=== PATIENT | male | born 1945 | race Caucasian/White ===

== ENCOUNTER 2017-06-06 10:13 | Outpatient (CLI) | payer MEDICARE, BC ==
[~2017-06-06 10:13] MED LIST: Iopamidol 370 76% 100 ML VIAL ONE
== END 2017-06-06 10:14 | disposition home or self-care (01) ==
LOC: BICCT 10:13
PROVIDERS: ATTEND Internal Medicine Cardiovascular Disease
DX: I73.9 Peripheral vascular disease, unspecified (principal); I77.810 Thoracic aortic ectasia; N20.0 Calculus of kidney; K57.30 Diverticulosis of large intestine without perforation or abscess without bleeding
CPT/HCPCS: 75635

== ENCOUNTER 2017-07-27 07:36 | Outpatient (CLI) | payer MEDICARE, BC ==
--- NOTE | 2017-07-27 11:09 | CT ---
CT ANGIOGRAM THORAX WITH IV CONTRAST AND 3D RECONSTRUCTIONS: DATE: 07/27/17. HISTORY: Thoracic aortic aneurysm without rupture. Followup evaluation. COMPARISON: 06/30/16 and study on 04/16/15. FINDINGS: Again noted is aneurysmal dilatation of the ascending thoracic aorta, which measures approximately 5 cm in diameter, and this is stable in size compared to the study on 04/16/15. Descending thoracic aor ta is normal in caliber. There is no evidence of an aortic dissection. There is suboptimal opacification of the pulmonary arteries on this exam. The heart is mildly enlarged. There is a stable heterogeneous nodule seen within the right lobe of the thyroid gland. This nodule measures approximately 1.3 cm. The lungs are clear, aside from minimal atelectasis at the right lung base. There is a fluid density 1.2 cm lesion within the anterior aspect superior pole right kidney suggesti ve of a cyst with questionable additional hypodense lesion mid portion right kidney incompletely imag ed, but this could be related to a prominent medullary pyramid. The remainder of the upper abdomen has a normal CT appearance. There has been no interval change compared to the prior exam. IMPRESSION: 1. Stable aneurysmal dilatation of the ascending thoracic aorta measuring 5 cm in diameter. This ex tends to the most proximal level of the aortic arch, but the aortic arch as well as descending thorac ic aorta are normal in caliber. 2. Heterogeneous nodule right lobe of the thyroid gland. Nonemergent thyroid ultrasound may be help ful for further evaluation. 3. Right renal cyst. POS: [facility]
[2017-07-27] MEDS ORDERED: Iopamidol 370 76% 100 ML VIAL ONE (15:11)
== END 2017-07-27 07:37 | disposition home or self-care (01) ==
LOC: CT 07:36
PROVIDERS: ATTEND Internal Medicine Cardiovascular Disease
DX: I71.2 Thoracic aortic aneurysm, without rupture (principal); E04.1 Nontoxic single thyroid nodule; N28.1 Cyst of kidney, acquired
CPT/HCPCS: 71275

== ENCOUNTER 2017-09-20 13:25 | Emergency (ER) | payer MEDICARE, BC ==
[2017-09-20 13:58] LABS: #Basophils 0.1 thou/uL (0.0-0.2); #Eosinphils 0.2 thou/uL (0.0-0.7); #Lymphocytes 0.8 thou/uL (1.20-3.40); #Monocytes 0.2 thou/uL (0.11-0.59); #Neutrophils 4.8 thou/uL (1.40-6.50); %Basophils 1.1 % (0.0-1.0); %Eosinophils 2.7 % (0.0-10.0); %Lymphocytes 12.6 % (21.0-51.0); %Monocytes 3.3 % (0.0-10.0); %Neutrophils 80.3 % (42.0-75.0); Hemoglobin 17.3 g/dL (14.0-18.0); Mean Corpuscular HGB CONC 33.8 g/dL (32.0-36.0); Mean Corpuscular Hemoglobin 32.3 pg (27.0-31.0); Mean Corpuscular Volume 95.4 fL (78.0-98.0); Mean Platelet Volume 9.1 fL (7.4-10.4); Platelet Count 169 thou/uL (130-400); RBC Distribution Width 12.4 % (11.5-14.5); Red Blood Cell (RBC) Count 5.37 mill/uL (4.70-6.10); White Blood Cell (WBC) Count 5.9 thou/uL (4.8-10.8)
--- NOTE | 2017-09-20 14:11 | RAD ---
PORTABLE UPRIGHT FRONTAL CHEST RADIOGRAPH: Date: 09-20-17 Comparison: None. History: Syncope. Pain. FINDINGS: There is no pneumothorax, pleural fluid, focal consolidation, or alveolar edema. Heart and mediastina l contours are grossly unremarkable. IMPRESSION: No acute findings. POS: [facility]
[2017-09-20 14:28] LABS: CKMB 1.7 ng/mL (0-6.6); Troponin I Less than 0.010 ng/mL (< 0.028)
[2017-09-20 14:30] LABS: ALT (SGPT) 40 U/L (8-55); AST (SGOT) 29 U/L (5-34); Albumin 4.2 g/dL (3.4-4.8); Alkaline Phosphatase 97 U/L (40-150); Anion Gap 14 mmol/L (10-20); BUN (Urea Nitrogen) 18 mg/dL (8.4-25.7); Bilirubin, Total 0.8 mg/dL (0.2-1.2); Calc. Creatinine Clearance 0 mL/min (70-130); Calcium 9.8 mg/dL (7.8-10.44); Carbon Dioxide 17 mmol/L (23-31); Chloride 113 mmol/L (98-107); Estimated GFR-MDRD 56; Globulin 3.6 g/dL (2.4-3.5); Glucose 180 mg/dL (83-110); Potassium 4.1 mmol/L (3.5-5.1); Protein, Total 7.8 g/dL (5.8-8.1); Sodium 140 mmol/L (136-145)
[2017-09-20 15:55] LABS: Bilirubin Negative (Negative); Blood, Urine Negative (Negative); Clarity CLEAR (Clear); Glucose, Urine (Dipstick) Negative (Negative); Leukocyte Moderate (Negative); Nitrite Negative (Negative); Protein, Urine (Dipstick) Trace mg/dL (Neg-Trace); Specific Gravity, Urine 1.019 (1.002-1.036); pH, Urine 7.5 (5.0-9.0)
[2017-09-20 15:56] LABS: Bacteria/HPF None Seen HPF (None Seen); Hyaline Casts/LPF 4-6 HYALINE CAST LPF (0-3 Hyaline); Pathc Cast-AUWi Flag 1.01 (0-2.49); RBC/HPF 0-3 HPF (0-3); Squamous Epithelial 0-3 HPF (0-3)
[2017-09-20 16:04] LABS: Renal Epithelial None Seen HPF (0-3); Transitional Epithelial NONE SEEN HPF (0-3)
== END 2017-09-20 17:24 | disposition home or self-care (01) ==
LOC: ERS 13:25
DX: E86.0 Dehydration (principal); B34.9 Viral infection, unspecified; Z79.899 Other long term (current) drug therapy
CPT/HCPCS: 36415; 71045; 80053; 81003; 81015; 82553; 84484; 85025; 93005; 96360; 96361

== ENCOUNTER 2017-09-24 07:37 | Outpatient (CLI) | payer MEDICARE, BC ==
--- NOTE | 2017-09-24 10:00 | MRI ---
BRAIN AND IAC MRI WITH AND WITHOUT CONTRAST: Date: 09/24/17 HISTORY: Asymmetric left hearing loss. COMPARISON: None. TECHNIQUE: Brain MRI and internal auditory canal MRI performed with and without intravenous Gadolinium administr ation. Multisequential, multiplanar imaging is performed. FINDINGS: Calvarium has a normal T1 marrow signal intensity. Midline brain parenchymal structures are unremarka ble. No parenchymal hemorrhage or extra-axial hematoma. No parenchymal mass, mass effect, or midline shift . Age-appropriate atrophy. Cortical dennis-white matter differentiation preserved. Ventricles and sulci are patent and symmetric. Central arterial flow-voids are maintained. Absent restricted diffusion. Minimal T2 and FLAIR white matter hyperintensities due to chronic small vessel ischemic change. Adequate aeration of the sinuses and mastoid air cells. There is evidence of hyperostosis frontalis interna. No pathologic enhancement of the brain parenchyma. INTERNAL AUDITORY CANAL MRI: There is symmetric signal intensity of the 7th/8th, as well as 5th cranial nerve complexes. There is no abnormal enhancement. No abnormal enhancement in either inner ear structure. IMPRESSION: 1. Unremarkable MRI of internal auditory canals. 2. Absent restricted diffusion. No acute infarct. 3. Age-appropriate brain volume. POS: [facility]
[2017-09-24] MEDS ORDERED: Gadobenate Dimeglumine 529 MG/1 ML (20ML VIAL) ONE (12:59)
== END 2017-09-24 07:38 | disposition home or self-care (01) ==
LOC: MRI 07:37
PROVIDERS: ATTEND Otolaryngology Plastic Surgery within the Head & Neck
DX: H91.8X9 Other specified hearing loss, unspecified ear (principal)
CPT/HCPCS: 70553; A9579

== ENCOUNTER 2018-01-30 12:50 | Outpatient (CLI) | payer MEDICARE, BC ==
--- NOTE | 2018-01-30 15:24 | ULT ---
THYROID ULTRASOUND: Comparison: CTA chest, 07-27-17 History: Abnormal thyroid nodule seen on previous CTA chest. Technique: Multiplanar grayscale and color doppler images were obtained in a thyroid ultrasound. FINDINGS: A small cyst is seen in the left lobe of the thyroid. There is an isoechoic well circumscribed nodule in the lower lobe of the right thyroid lobe. This contains a central shadowing benign appearing calc ification. No suspicious calcifications are present. This nodule measures 1.7 cm in greatest dimensio n. Thyroid lobes measure 4.5 and 4.3 cm in length on the right and left respectively. IMPRESSION: The right thyroid nodule is a TIRADS category 3 lesion. Follow up is recommended per recent recommend ations at 1 year, 3 years, and 5 years as this is greater than 1.5 cm in size. POS: [facility]
== END 2018-01-30 12:51 | disposition home or self-care (01) ==
LOC: BICULT 12:50
PROVIDERS: ATTEND Internal Medicine Cardiovascular Disease
DX: E07.9 Disorder of thyroid, unspecified (principal); E04.1 Nontoxic single thyroid nodule
CPT/HCPCS: 76536

== ENCOUNTER 2018-06-24 08:09 | Outpatient (CLI) | payer MEDICARE, BC ==
--- NOTE | 2018-06-24 10:55 | CT ---
CT ABDOMEN AND PELVIS WITH IV CONTRAST: DATE: 06/24/2018. PROVIDED CLINICAL HISTORY: Abdominal pain. FINDINGS: Comparison is made with the CT angiogram of 06/06/2017 of the abdomen and pelvis and bilateral lower ex tremities. Known ascending thoracic aortic aneurysm is partially visualized. The visualized lung bases are free of significnat opacity. There is interval development of dilatation of the pancreatic duct involvin g the body and tail. There is a subtle focus of somewhat circumscribed diminished attenuation seen w ithin the pancreatic body medial to the pancreatic ductal dilatation. This measures approximate 1.9 cm. The remainder of the pancreatic duct is not dilated, nor is the intrahepatic or extrahepatic slim iary system. This area of somewhat mass-like low density within the pancreatic body is immediately c ranial to the superior mesenteric vein. There is an approximately 9 mm focus of low density present within the anterior aspects of the remedial teacher ior segment of the right hepatic lobe inferiorly seen to best advantage on the axial images, image #2 2. The liver, spleen, and adrenal glands appear otherwise unremarkable. There is a complex cystic lesion involving the posterior aspect of the inferior pole of the right kid venita measuring about 5.8 x 5.2 cm in greatest transverse dimension and about 4.7 cm in greatest cranio caudal dimension. This demonstrates multiple thin internal septations as well as occasional mural ca lcium. There is no definite evidence for an enhancing component. Simple-appearing cysts are seen in volving each kidney as well. Nonobstructing renal calculi are seen bilaterally, largest on the left measuring about 2-3 mm and aggregation of calculi at the inferior pole of the right kidney measuring about 1 cm in total. There is no bowel dilatation, inflammatory fat stranding, free fluid, or lymph node enlargement appar ent. Sigmoid colonic diverticular changes are seen without evidence for diverticulitis. Prostate gl and is mildly enlarged. The osseous structures demonstrate no concerning osteoblastic or osteolytic lesions. Stable bone islands are seen within the pelvis. Postoperative changes are seen involving t he lower lumbar spine. IMPRESSION: 1. Interval development of pancreatic ductal dilatation involving the distal body and tail of the pa ncreas with a subtle low-density mass within the pancreatic body suspected. Findings are suspicious for pancreatic adenocarcinoma with ductal obstruction. Intraductal papillary mucinous neoplasm could also be considered. 2. Nonspecific subcentimeter hypodense focus involving the right hepatic lobe. A metastatic lesion cannot be excluded. 3. Bosniak category IIF right renal cystic lesion. 4. Other chronic findings as above. CODE T POS: [facility]
[2018-06-24] MEDS ORDERED: Iopamidol 370 76% 100 ML VIAL ONE (17:11)
== END 2018-06-24 08:10 | disposition home or self-care (01) ==
LOC: BICCT 08:09
PROVIDERS: ATTEND Internal Medicine Gastroenterology
DX: R10.33 Periumbilical pain (principal); R13.19 Other dysphagia; N28.9 Disorder of kidney and ureter, unspecified; K86.89 Other specified diseases of pancreas; N40.0 Benign prostatic hyperplasia without lower urinary tract symptoms; I71.2 Thoracic aortic aneurysm, without rupture; N28.1 Cyst of kidney, acquired; N20.0 Calculus of kidney; Z98.890 Other specified postprocedural states; Z86.010 Personal history of colon polyps
CPT/HCPCS: 74177; 82565; Q9967

== ENCOUNTER 2018-08-14 09:39 | Outpatient (CLI) | payer MEDICARE, BC ==
--- NOTE | 2018-08-14 11:23 | CT ---
EXAM: CTA of the chest HISTORY: Aortic thoracic aneurysm COMPARISON: 07/27/2017 TECHNIQUE: Multiple contiguous axial images were obtained a CTA of the chest with contrast. Sagittal and coronal 3-D MIP reformats were performed. FINDINGS: HEART: Normal in size without focal cardiac abnormality. PULMONARY ARTERIES: Normal in caliber without filling defects to suggest pulmonary emboli. THORACIC AORTA: There is enlargement of the ascending aorta measuring 5.2 cm in greatest dimension. T he descending aorta is normal in caliber. MEDIASTINUM: No hilar or mediastinal lymphadenopathy. LUNGS: No focal infiltrates or masses. PLEURAL SPACE: No pleural effusion or pneumothorax. CHEST WALL SOFT TISSUES: Unremarkable VISUALIZED OSSEOUS STRUCTURES: Degenerative changes. VISUALIZED SUBDIAPHRAGMATIC STRUCTURES: There is dilatation of the pancreatic duct with a possible hy podense mass measuring 1.6 cm in size in the pancreatic head. IMPRESSION: 1. Ascending thoracic aneurysm. This appears to have slightly enlarged compared to the prior examinat ion. 2. Possible pancreatic head mass. A CT of the abdomen per pancreatic mass protocol is recommended.
== END 2018-08-14 09:40 | disposition home or self-care (01) ==
LOC: CT 09:39
PROVIDERS: ATTEND Internal Medicine Cardiovascular Disease
DX: I71.2 Thoracic aortic aneurysm, without rupture (principal)
CPT/HCPCS: 71250; 71275; 82565

== ENCOUNTER 2019-02-18 09:21 | Outpatient (CLI) | payer MEDICARE, BC ==
--- NOTE | 2019-02-18 09:43 | RAD ---
XR Hip Lt 2-3 View History: Hip pain. M 25.552 Comparison: None. Findings: Small acetabular osteophyte formation. Mild enthesopathic changes of the left iliac crest. Mild enthesopathic changes of the greater trochanter. No acute fracture or malalignment. Moderate degenerative changes of the pubic symphysis and SI joints. Impression: Degenerative findings. No acute osseous abnormality.
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
== END 2019-02-18 09:22 | disposition home or self-care (01) ==
LOC: BICRAD 09:21
PROVIDERS: ATTEND Family Medicine
DX: M25.552 Pain in left hip (principal); M25.562 Pain in left knee; M79.662 Pain in left lower leg; M16.12 Unilateral primary osteoarthritis, left hip

== ENCOUNTER 2019-09-29 15:38 | Inpatient (IN) | payer MEDICARE, BC ==
[~2019-09-29 15:38] MED LIST changes: -Iopamidol 370 76% 100 ML VIAL ONE; +Iopamidol-370 76% 500 ML 1 ML ONE
--- NOTE | 2019-09-29 16:31 | RAD ---
EXAM: Single view of the chest HISTORY: Chest pain COMPARISON: 09/20/2017 FINDINGS: Single view of the chest shows a normal sized cardiomediastinal silhouette. A Mediport is seen with its tip in the superior vena cava. There is no evidence of consolidation, mass, or pleural effusion. The bones are unremarkable. IMPRESSION: No evidence of acute cardiopulmonary disease
[2019-09-29 16:50] LABS: Mean Corpuscular HGB CONC 32.7 g/dL (32.0-36.0); Mean Corpuscular Hemoglobin 29.7 pg (27.0-31.0); Mean Corpuscular Volume 90.9 fL (78.0-98.0); Mean Platelet Volume 11.3 fL (7.4-10.4); Platelet Count 94 thou/uL (130-400); RBC Distribution Width 17.1 % (11.5-14.5); Red Blood Cell (RBC) Count 2.69 mill/uL (4.70-6.10); White Blood Cell (WBC) Count 1.7 thou/uL (4.8-10.8)
[2019-09-29 17:03] LABS: ALT (SGPT) 48 U/L (8-55); AST (SGOT) 45 U/L (5-34); Albumin 3.1 g/dL (3.4-4.8); Alkaline Phosphatase 481 U/L (40-110); Anion Gap 12 mmol/L (10-20); BUN (Urea Nitrogen) 17 mg/dL (8.4-25.7); Bilirubin, Total 0.6 mg/dL (0.2-1.2); Calc. Creatinine Clearance 0 mL/min (70-130); Calcium 8.2 mg/dL (7.8-10.44); Carbon Dioxide 21 mmol/L (23-31); Chloride 111 mmol/L (98-107); Estimated GFR-MDRD 67; Globulin 2.6 g/dL (2.4-3.5); Glucose 140 mg/dL (83-110); Potassium 3.7 mmol/L (3.5-5.1); Protein, Total 5.7 g/dL (5.8-8.1); Sodium 140 mmol/L (136-145)
[2019-09-29 17:13] LABS: Anisocytosis SLIGHT = 6-15 cells (100X) (0-5/hpf); Band 14 % (5-11); Eosinophils 3 % (0-10); Lymphocytes 8 % (21-51); MDiff Complete? YES; Monocytes 16 % (0-10); Neutrophil 56 % (42-75); Ovalocytes SLIGHT = 2-5 cells (100X) (0-1/hpf); Platelet Morphology Comment Appears Decreased; Polychromasia SLIGHT = 2-3 cells (100X) (0-2/hpf); Reactive Lymphocytes 2 % (0-10); Reflex for Review?? YES; Schistocytes SLIGHT = 2-5 cells (100X) (0-1/hpf); Spherocytes SLIGHT = 1-5 cells (100X) (None Seen); Target Cells SLIGHT = 2-5 cells (100X) (0-1/hpf)
[2019-09-29 17:25] LABS: CKMB 1.2 ng/mL (0-6.6)
--- NOTE | 2019-09-29 18:17 | CT ---
CT ANGIOGRAM OF THE CHEST: History: Pain Comparison: None Technique: CT angiogram of the chest was performed in the axial plane. 3D reformatted images are subm itted for interpretation. FINDINGS: Mediastinum: No mass, lymphadenopathy, or hematoma. Stable dilatation of the ascending thoracic aorta, measuring 4.8 x 4.8 cm. No periaortic fat strandin g. There is evidence of a stent in the common bile duct. There is associated pneumobilia. Mild cirrhotic changes of the liver. There is evidence of complex ascites. Trachea and central bronchi are patent. Patchy ground glass opacities. No suspicious masses or consol idation. There is no pneumothorax or pleural fluid. No lytic or blastic lesions within the osseous structures. Adequate contrast opacification of the pulmonary arterial system to the level of the segmental arteri es. There are no filling defects to suggest thromboembolism. The central pulmonary arteries are promi nent suggesting a component of pulmonary hypertension. IMPRESSION: 1. No evidence of pulmonary arterial embolism to the level of the segmental arteries. 2. Complex ascites. 3. Cirrhotic change of the liver. 4. Common bile duct stent with pneumobilia. POS: [facility]
[2019-09-29 20:45] LABS: Hemoglobin 7.9 g/dL (14.0-18.0)
[2019-09-29 21:05] LABS: Iron Binding Capacity, Total 280 mcg/dL (261-462); Lipase Less than 4 U/L (8-78)
[2019-09-29 21:06] LABS: Iron 23 ug/dL (65-175)
[2019-09-29 21:26] LABS: Ferritin 106.59 ng/mL (22-322); Thyroid Stimulating Hormone 1.63 uIU/mL (0.35-4.94)
[2019-09-29 21:38] LABS: CKMB 8.7 ng/mL (0-6.6)
--- NOTE | 2019-09-29 23:27 | HP ---
TIME OF ASSESSMENT: 1800 hours. CHIEF COMPLAINT: "Chest pain that went down my arm norms." PRIMARY CARE PHYSICIAN: Hansel Messer MD HISTORY OF PRESENT ILLNESS: Mr. Brandon is a very pleasant 74-year-old gentleman, who presents to the emergency department after having an episode of severe lower sternal/epigastric pain. The patient states it came on suddenly while he was resting and was severe, described as a dull aching. He rated it a 10/10 in severity and states it lasted approximately 45 minutes. The patient reports having similar pains in the last 2 months intermittently and without any association in activity level. He states that usually the discomfort is not as severe and it tends to ease on its own after 20-30 minutes. He denies experiencing any shortness of breath with exertion or at rest. Denies having any cough or hemoptysis. Denies any nausea or vomiting. No associated diaphoresis. His received instructions to give him aspirin while he was at home when they called for help. The patient denies ever undergoing any cardiac stress test or catheterization. Has not required any stents in the past. Reports having history of a thoracic aortic aneurysm, for which he sees Dr. Olivares regularly. The patient is known to have pancreatic cancer, for which he is currently receiving chemotherapy. He has been receiving chemo for the last year and states for the last two treatment sessions, he has required blood transfusion due to severe anemia. He reports feeling fatigued and generally weak and states receiving blood transfusions has not improved how he feels. He reports being evaluated for a Whipple procedure in July, but due to concerns of hepatic vasculature involvement, the surgery was put off and he was recommended additional chemo to be followed by radiation therapy. He is currently receiving treatment every other Sunday at the [facility] in [facility]. He is due to receive treatment this Sunday. At present, the patient states he is feeling well and is without any complaints. Chest pain has fully resolved. REVIEW OF SYSTEMS: The patient denies having any issues with his appetite. Reports having issues with fluctuating bowel movements, sometimes he experiences diarrhea and other times constipation, but this has been essentially stable since he has been on chemotherapy. Denies having any urinary complaints such as dysuria, hematuria, urgency, or frequency. Denies having any fevers, chills, or sweats. No complaints of orthopnea. No lower leg swelling or edema. No calf tenderness. All other review of systems apart from those mentioned above in HPI is negative. ED COURSE: In the emergency department, the patient underwent an EKG, which showed normal sinus rhythm with a heart rate of 73. No ST changes or T-wave abnormalities present. He had a chest x-ray done, which showed no evidence of acute cardiopulmonary disease. A CT angiogram was done as well showing no evidence of PE. Complex ascites present with cirrhotic changes to the liver. The patient states he has no history of alcohol abuse in the past and states the liver changes have developed since starting chemotherapy. Of note, the patient is noted to have a stable dilation of the ascending thoracic aorta currently measuring 4.8 x 4.8 cm. He is noted to have a common bile duct stent with pneumobilia. He has had laboratory studies done showing a white count of 1.7, hemoglobin of 8, hematocrit 24.5, platelets 94, neutrophils 56, bands 14. Sodium 140, potassium 3.7, BUN 17, creatinine 1.08, GFR 67, glucose 140, calcium 9.2, AST 45, ALT 48, alkaline phosphatase 41, CK-MB 1.2, troponin 0.068, albumin 3.1, total protein 5.7. PAST MEDICAL HISTORY: 1. Pancreatic cancer. 2. Thoracic ascending aortic aneurysm. PAST SURGICAL HISTORY: 1. Back surgery. 2. MediPort placement. 3. Arm surgery. SOCIAL HISTORY: The patient denies any history of tobacco use, alcohol consumption, or illicit drug use. He lives at home with his and is fully independent. FAMILY HISTORY: Noncontributory. ALLERGIES: NO KNOWN DRUG ALLERGIES. CURRENT MEDICATIONS: 1. Alprazolam 0.25 mg p.o. t.i.d. 2. Tamsulosin 0.4 mg p.o. daily. 3. Montelukast 10 mg p.o. daily. 4. Zolmitriptan 5 mg p.o. p.r.n. 5. Esomeprazole magnesium 40 mg p.o. twice daily. 6. Topiramate 25 mg p.o. t.i.d. 7. Eszopiclone 3 mg p.o. p.r.n. 8. Hyoscyamine. 9. Zinc 50 mg p.o. daily. 10. Selenium 200 mcg p.o. daily. 11. Creon. 12. Oxycodone 5 mg p.o. every 6 hours as needed for pain. 13. Compazine 5 mg p.o. every 6 hours p.r.n. 14. Lomotil p.r.n. 15. Ondansetron 8 mg p.o. p.r.n. PHYSICAL EXAMINATION: GENERAL: The patient appears thin, pale, frail, but well developed, and in no acute distress. He is resting comfortably in a stretcher. VITAL SIGNS: Temperature 99, pulse 72, blood pressure 100/69, respirations 16, and O2 saturation 98% on room air. HEENT: Normocephalic and atraumatic. Pupils are equal, round, and reactive to light. Sclerae are slightly icteric. Oropharynx is clear. NECK: Supple. LUNGS: Clear bilaterally without any wheezes, rales, or rhonchi. CARDIAC: Regular rate and rhythm without audible murmurs, rubs, or gallops. ABDOMEN: Soft. Some slight bloating. No rigidity. Mild epigastric discomfort on palpation. No guarding. No renal angle tenderness. EXTREMITIES: No lower leg swelling or edema. No calf tenderness or swelling. NEUROLOGIC: Alert and oriented x3. No neuro deficits on exam. Speech normal. SKIN: Warm and dry, pale in color. IMPRESSION AND PLAN: Mr. Brandon is a very pleasant 74-year-old gentleman, who is known to have pancreatic cancer, currently undergoing chemotherapy every other Sunday at [facility] in [place], who is being admitted for management of the following. 1. Acute coronary syndrome rule out. The patient with intermittent chest pain for the last two months, which was significantly worse today and lasting longer. There is concern for unstable angina. He could be experiencing demand ischemia due to severe anemia associated with chemotherapy. No chest pain at present. EKG, unremarkable. An initial troponin indeterminate at 0.368. We will continue to trend troponin. The patient had aspirin at home per EMS instructions. We will continue daily aspirin and start him on a statin. He is known to Dr. Olivares, who sees for surveillance of his thoracic aortic aneurysm. Consultation placed to Dr. Olivares. We will keep the patient n.p.o. after midnight in the event that he undergoes a stress test in the morning. Echocardiogram ordered and CT angiogram negative for PE. We will check TSH and lipid panel with morning labs. We will add on magnesium to labs as well. 2. Severe anemia. Possibly cause of chest pain secondary to demand ischemia. We will obtain iron studies. We will give gentle hydration. However, we will likely dilute the hemoglobin further and they would plan to give blood transfusion. Type and screen ordered. We will check stool for occult blood. 3. Pancreatic cancer. The patient is currently on chemotherapy. May need to be rescheduled as he is due for treatment this upcoming Sunday. Day Team to decide if Oncology input needed during this admission. LFTs notable for mild elevation in the AST, otherwise LFTs normal. The patient does have liver cirrhosis with complex ascites noted on the CTA of the chest. We will repeat LFTs with morning labs. 4. Thoracic aortic aneurysm. Proceeded to angiogram, this is currently stable. 5. Gastrointestinal prophylaxis. The patient will be started on omeprazole 40 mg b.i.d. 6. Deep venous thrombosis prophylaxis. Mechanical SCDs. 7. Reconcile home medications once verified. 8. Code status: The patient states has his advance directives in place and is unable to state the details. His surrogate decision maker is his , Kamila Brandon. Case discussed with attending, who agrees with plan of care as described above. Job ID: [id number]
[2019-09-30] MEDS ORDERED: ALPRAZolam 0.25 MG TAB PO PRN (00:03)
[2019-09-30] MEDS ORDERED: Diphenoxylate HCl/Atropine Tablet PO PRN (00:03)
[2019-09-30] MEDS ORDERED: oxyCODONE 5 MG TAB PO PRN (00:03)
[2019-09-30] MEDS ORDERED: Loperamide HCl 2 MG CAP PO PRN (00:13)
[2019-09-30] MEDS ORDERED: Sodium Chloride 0.45% 250 ML IV SCH (00:15)
[2019-09-30] MEDS ORDERED: SUMAtriptan Succinate 50 MG TAB PO PRN (00:21)
[2019-09-30] MEDS ORDERED: Ondansetron PF 4 MG/2 ML Vial IVP SCH (03:00)
[2019-09-30 03:04] LABS: CKMB 30.6 ng/mL (0-6.6)
[2019-09-30] MEDS: Sodium Chloride 0.45% 1,000 ML IV SCH ×2 (04:29→16:29)
[2019-09-30 06:33] LABS: ALT (SGPT) 74 U/L (8-55); AST (SGOT) 113 U/L (5-34); Albumin 2.9 g/dL (3.4-4.8); Alkaline Phosphatase 554 U/L (40-110); Anion Gap 12 mmol/L (10-20); BUN (Urea Nitrogen) 18 mg/dL (8.4-25.7); Bilirubin, Total 2.7 mg/dL (0.2-1.2); Calc. Creatinine Clearance 59 mL/min (70-130); Carbon Dioxide 19 mmol/L (23-31); Cardiac Risk 2.7 (Less than 4.5); Chloride 111 mmol/L (98-107); Cholesterol 99 mg/dl (< 200 Desired); Estimated GFR-MDRD 75; Globulin 2.3 g/dL (2.4-3.5); Glucose 166 mg/dL (83-110); HDL Cholesterol 37 mg/dL (>60 Neg Risk); LDL Cholesterol, Calculated 52 mg/dL; Potassium 4.1 mmol/L (3.5-5.1); Protein, Total 5.2 g/dL (5.8-8.1); Sodium 138 mmol/L (136-145); Triglycerides 51 mg/dL (Less than 150)
[2019-09-30 07:01] LABS: CKMB 24.1 ng/mL (0-6.6); Critical Call CKMB RESULT DECREASING
[2019-09-30] MEDS ORDERED: Pancrelipase DR 12000 1 CAP PO PRN (08:00)
[2019-09-30] MEDS ORDERED: Simethicone Chewable 80 MG TAB PO PRN (09:00)
[2019-09-30] MEDS ORDERED: Prevnar 13-Val Conj/PF 0.5 ML SYRINGE IM ONE (09:00)
[2019-09-30] MEDS: Pancrelipase DR 12000 1 CAP PO SCH ×3 (09:45→18:20)
[2019-09-30] MEDS: Topiramate 25 MG TAB PO SCH ×3 (09:46→20:37)
[2019-09-30] MEDS ORDERED: Acetaminophen 325 MG TAB PO PRN (11:55)
--- NOTE | 2019-09-30 12:01 | PDOC.HOSPP ---
- Subjective Encounter Date: 09/30/19 Subjective: Pain is improving in the left arm area. Feels generally a little better. - Objective Vital Signs & Weight: Vital Signs (12 hours) Temp Pulse Pulse Resp BP BP Pulse Ox 09/30/19 08:33 997 H 09/30/19 08:05 100.9 F H 95 16 102/70 97 09/30/19 04:00 99.5 F 98 20 105/65 97 09/30/19 01:58 98.6 F 85 18 107/63 09/30/19 01:22 98.6 F 85 18 107/63 09/30/19 01:08 98.3 F 83 18 102/64 Weight Weight 137 lb 6 oz I&O: 09/29/19 09/30/19 10/01/19 06:59 06:59 06:59 Intake Total 500 Output Total 700 Balance -200 Result Diagrams: 09/29/19 20:31 09/30/19 05:51 Additional Labs: Accuchecks 09/30/19 05:36 POC Glucose 175 H Hospitalist ROS - Medication Medications: Active Medications Generic Name Dose Route Start Last Admin Trade Name Freq PRN Reason Stop Dose Admin Lipase/Protease/Amylase 12 cap 09/30/19 08:00 09/30/19 09:45 Creon 31168 PO Not Given TID-WM DRE Sodium Chloride 1,000 mls @ 75 mls/hr 09/30/19 00:15 09/30/19 04:29 1/2 Normal Saline IV 1,000 mls .[id number] DRE Administration Sodium Chloride 10 ml 09/29/19 21:00 09/30/19 09:46 Flush - Normal Saline IVF 10 ml Q12HR DRE Administration Topiramate 25 mg 09/30/19 09:00 09/30/19 09:46 Topamax PO Not Given TID DRE - Exam General Appearance: NAD, awake alert General - other findings: Thin Heart: RRR, no murmur, no gallops, no rubs, normal peripheral pulses Respiratory: CTAB, no wheezes, no rales, no ronchi, normal chest expansion, no tachypnea, normal percussion Gastrointestinal: soft, non-tender, non-distended, normal bowel sounds ( hyperactive) Extremities: no cyanosis, no clubbing, no edema Skin: normal turgor Neurological: no focal deficits Musculoskeletal: normal tone, generalized weakness Psychiatric: normal affect, normal behavior, A&O x 3 Hosp A/P (1) NSTEMI (non-ST elevated myocardial infarction) Code(s): I21.4 - NON-ST ELEVATION (NSTEMI) MYOCARDIAL INFARCTION Status: Acute (2) Pancreatic cancer Status: Acute (3) Fever Code(s): R50.9 - FEVER, UNSPECIFIED Status: Acute (4) Cirrhosis of liver Code(s): K74.60 - UNSPECIFIED CIRRHOSIS OF LIVER Status: Acute - Plan NSTEMI: Discussed the case with Dr. Olivares this morning. NSTEMI is likely due to severe anemia. We will obtain echocardiogram today. Consider the possibility of doing a heart cath tomorrow. His blood pressures have been borderline low. He did require some fluid bolus overnight. Pancytopenia with severe anemia: Secondary to chemotherapy. Patient has received transfusion and his hemoglobin is up to 7.9. Rechecking CBC now. Pancreatic cancer: Patient is receiving chemotherapy through [facility]. Cirrhosis of the liver: This is based on imaging. He also has a biliary stent in place. Has some complex ascites. Fever: Patient has pancytopenia. Rechecking a CBC now to see if he might be neutropenic. Obtaining blood cultures and a UA. Chest CT was unremarkable.
[2019-09-30] MEDS ORDERED: Zolpidem Tartrate 5 MG TAB PO PRN (12:15)
[2019-09-30] MEDS: Aspirin 325 mg Enteric Coated Tablet PO SCH (13:03)
[2019-09-30] MEDS: Ondansetron PF 4 MG/2 ML Vial IVP PRN ×2 (13:49→22:01)
[2019-09-30 15:35] LABS: Hemoglobin 7.8 g/dL (14.0-18.0); Mean Corpuscular HGB CONC 32.5 g/dL (32.0-36.0); Mean Corpuscular Hemoglobin 29.7 pg (27.0-31.0); Mean Corpuscular Volume 91.2 fL (78.0-98.0); Platelet Count 103 thou/uL (130-400); RBC Distribution Width 16.6 % (11.5-14.5); Red Blood Cell (RBC) Count 2.64 mill/uL (4.70-6.10); White Blood Cell (WBC) Count 3.1 thou/uL (4.8-10.8)
[2019-09-30 15:45] LABS: Anisocytosis SLIGHT = 6-15 cells (100X) (0-5/hpf); Band 5 % (5-11); Lymphocytes 9 % (21-51); MDiff Complete? YES; Monocytes 5 % (0-10); Neutrophil 79 % (42-75); Ovalocytes SLIGHT = 2-5 cells (100X) (0-1/hpf); Platelet Morphology Comment Appears Decreased; Polychromasia MODERATE = 3-4 cells (100X) (0-2/hpf); Reactive Lymphocytes 2 % (0-10); Target Cells SLIGHT = 2-5 cells (100X) (0-1/hpf)
[2019-09-30] MEDS: Tamsulosin HCl 0.4 MG CAP PO SCH (20:37)
[2019-09-30 23:59] LABS: Bacteria/HPF None Seen HPF (None Seen); Bilirubin Negative (Negative); Blood, Urine Negative (Negative); Clarity Clear (Clear); Glucose, Urine (Dipstick) Normal (Negative); Ketone, Urine Negative (Negative); Leukocyte 25 Leu/uL (Negative); Nitrite Negative (Negative); Protein, Urine (Dipstick) Negative (Neg-Trace); Specific Gravity, Urine 1.021 (1.002-1.036); Squamous Epithelial None Seen HPF (0-3); WBC/HPF 0-3 HPF (0-3)
[2019-10-01 05:18] LABS: ALT (SGPT) 55 U/L (8-55); AST (SGOT) 60 U/L (5-34); Albumin 2.6 g/dL (3.4-4.8); Alkaline Phosphatase 396 U/L (40-110); Anion Gap 11 mmol/L (10-20); BUN (Urea Nitrogen) 16 mg/dL (8.4-25.7); Bilirubin, Total 1.2 mg/dL (0.2-1.2); Calc. Creatinine Clearance 68 mL/min (70-130); Calcium 7.7 mg/dL (7.8-10.44); Carbon Dioxide 19 mmol/L (23-31); Chloride 111 mmol/L (98-107); Estimated GFR-MDRD 88; Globulin 2.2 g/dL (2.4-3.5); Glucose 100 mg/dL (83-110); Potassium 3.6 mmol/L (3.5-5.1); Protein, Total 4.8 g/dL (5.8-8.1); Sodium 137 mmol/L (136-145)
[2019-10-01 05:27] LABS: Band 20 % (5-11); Eosinophils 2 % (0-10); Hemoglobin 6.8 g/dL (14.0-18.0); Hypochromia SLIGHT = 6-15 cells (100X) (0-5/hpf); Lymphocytes 2 % (21-51); MDiff Complete? YES; Mean Corpuscular HGB CONC 32.5 g/dL (32.0-36.0); Mean Corpuscular Hemoglobin 29.8 pg (27.0-31.0); Mean Corpuscular Volume 91.5 fL (78.0-98.0); Mean Platelet Volume 11.4 fL (7.4-10.4); Monocytes 2 % (0-10); Neutrophil 74 % (42-75); Platelet Count 84 thou/uL (130-400); Platelet Morphology Comment Appears Decreased; Red Blood Cell (RBC) Count 2.29 mill/uL (4.70-6.10); White Blood Cell (WBC) Count 2.2 thou/uL (4.8-10.8)
--- NOTE | 2019-10-01 07:45 | CON ---
DATE OF CONSULTATION: 09/30/2019 REASON FOR CONSULTATION: Elevated troponin. HISTORY OF PRESENT ILLNESS: Mr. Brandon is a very pleasant 74-year-old gentleman, who I have seen and evaluated in the past. He is a patient of Dr. Hansel Messer. He recently presented with acute onset chest pain. Lasted 40 minutes. His CK-MB and troponin were positive. His CK-MB began to trend down with continued elevated troponin. During my visit, he is currently chest pain free. Mr. Brandon did undergo noninvasive stress that he performed in 2018 that was negative for ischemia. Overall, LVEF appeared normal. Mr. Brandon has also been recently diagnosed with a pancreatic cancer. I did speak with his oncologist. This is considered inoperable. He has been treated by chemotherapy and radiation therapy. He also has had profound anemia with need for transfusion. PAST MEDICAL HISTORY: Thoracic aortic aneurysm, pancreatic cancer, back surgery, MediPort placement, arm surgery, hypertension, anxiety disorder, migraine headaches, melanoma, insomnia. PAST SURGICAL HISTORY: spinal surgery. HOME MEDICATIONS: 1. . 2. Ondansetron. 3. Stool softener. 4. Simethicone. 5. Antidiarrheal. 6. Tamsulosin. 7. Hyoscyamine. 8. Vitamin E. 9. Selenium. 10. Protonix. 11. Topamax. 12. Xanax. 13. Flonase. 14. Bystolic. 15. Fluoxetine. 16. Gabapentin. ALLERGIES: IODINE. REVIEW OF SYSTEMS: Ten-point review of systems is reviewed and as above, otherwise negative. PHYSICAL EXAMINATION: GENERAL: Patient is a pleasant 74-year-old, who is in no acute distress. The patient appears to be older than stated age. VITAL SIGNS: Blood pressure 105/65, pulse 95, and temperature 100.9. NEUROLOGIC: The patient is alert and oriented x3 with no focal neurologic deficits. HEENT: Sclerae without icterus. Mouth has moist mucous membranes with normal pallor. NECK: No JVD. Carotid upstroke brisk. No bruits bilaterally. LUNGS: Clear to auscultation with unlabored respirations. BACK: No scoliosis or kyphosis. CARDIAC: Regular rate and rhythm with normal S1 and S2. No S3 or S4 noted. No significant rubs, murmurs, thrills, or gallops noted throughout the precordium. PMI is not displaced. There is no parasternal heave. ABDOMEN: Soft, nontender, nondistended. No peritoneal signs present. No hepatosplenomegaly. No abnormal striae. EXTREMITIES: 2+ femoral and 2+ dorsalis pedis pulses. No cyanosis, clubbing, or edema. SKIN: No gross abnormalities. PERTINENT LABORATORY DATA: Hemoglobin 7.8, white blood cell count 1.7 up to 3.1, and platelet count 103. CK-MB 30 downtrending to 24. Peak troponin 13. EKG shows normal sinus rhythm, normal EKG. IMPRESSION: 1. Elevated troponin. 2. Profound anemia. 3. Pancreatic cancer. 4. Gastric aortic aneurysm. RECOMMENDATIONS: It is a certainly very difficult case. Mr. Brandon is currently pain free. His hemoglobin remains low despite transfusion. I discussed case with his oncologist in [place] in addition to Dr. Hansel Messer. At this point, Mr. Brandon would like to proceed with a more conservative approach. He would like to proceed with medical therapy. He is not interested in further procedures. We may revisit with Mr. Brandon on the above based on his CK-MB and troponin. The symptoms certainly sound unstable, but I am pleased that he is pain-free. We will continue transfusion. We will try to keep his hemoglobin above 9. His oncologist also stated that his chemotherapeutic agents are likely to be cardiotoxic. We did attempt several times to call his to no avail. At this point, we will continue with continued conservative treatment. We will review his echo. Job ID: [id number]
[2019-10-01] MEDS: Pancrelipase DR 12000 1 CAP PO SCH ×3 (10:58→16:58)
[2019-10-01] MEDS: Topiramate 25 MG TAB PO SCH ×3 (10:58→20:22)
[2019-10-01] MEDS: Aspirin 325 mg Enteric Coated Tablet PO SCH (12:15)
[2019-10-01] MEDS: Sodium Chloride 0.45% 1,000 ML IV SCH ×2 (12:15→16:58)
[2019-10-01] MEDS: Ondansetron PF 4 MG/2 ML Vial IVP PRN ×2 (12:15→18:23)
[2019-10-01] MEDS ORDERED: Communication Order-Pharmacy FS SCH (13:30)
[2019-10-01] MEDS: diphenhydrAMINE 25 MG CAP PO SCH ×2 (14:36→18:24)
[2019-10-01] MEDS: predniSONE 20 MG TAB PO SCH ×2 (14:36→18:23)
--- NOTE | 2019-10-01 18:02 | PRG ---
DATE OF SERVICE: 10/01/2019 SUBJECTIVE: Mr. Brandon is feeling better. He received a unit of packed red blood cells. His hemoglobin . OBJECTIVE: VITAL SIGNS: Afebrile, pulse 62, blood pressure 107/71. LUNGS: Clear to auscultation. HEART: Regular rate and rhythm. ABDOMEN: Soft, nontender, and nondistended. EXTREMITIES: No edema. PERTINENT LABORATORY DATA: Hemoglobin as above. IMPRESSION: 1. Elevated troponin. 2. Profound anemia. 3. Pancreatic cancer. 4. Thoracic aneurysm. RECOMMENDATIONS: I discussed the risks and benefits of proceeding with coronary angiography versus medical therapy with both Mr. Brandon and his , Kamila. I have discussed risks and benefits of both. We have all decided to proceed with coronary angiography. I also discussed the case with his oncologist, who feels based on his chemo and radiation treatment, he is able to have more than 1 year of life. At this point, we will proceed with coronary angiography, possible PCI. I discussed the procedure in full detail with Mr. Brandon. Risks include, but not limited to the following: , stroke, CO, need for emergency surgery, loss of limb, bleeding, and infection, as well as a reaction to the dye causing kidney failure and needing long-term dialysis. I also discussed the risks of PCI to include all of the above including coronary dissection and perforation in addition to acute stent thrombosis and restenosis. All questions about the procedure were answered. Given the above, the patient agreed to proceed with coronary angiography and possible PCI. He gave consent. All questions were answered. We will proceed with a bare-metal stent if needed. He does have guaiac-positive stools, but his anemia is most likely related to chemo. We would like to see his hemoglobin above 8. We will proceed with a radial approach to minimize bleeding. This may be difficult due to aneurysm. Job ID: [id number]
--- NOTE | 2019-10-01 18:08 | EKG ---
Test Reason : STAT Blood Pressure : / mmHG Vent. Rate : 082 BPM Atrial Rate : 082 BPM P-R Int : 122 ms QRS Dur : 090 ms QT Int : 408 ms P-R-T Axes : 029 030 025 degrees QTc Int : 476 ms Normal sinus rhythm Normal ECG When compared with ECG of 20-SEP-2017 13:37, Left anterior fascicular block is no longer Present Confirmed by JUAN CARLOS SPRAGUE (2) on 10/01/2019 6:08:38 PM Referred By: RAUL Confirmed By:JUAN CARLOS SPRAGUE
--- NOTE | 2019-10-01 18:29 | PDOC.HOSPP ---
- Subjective Encounter Date: 10/01/19 Subjective: Patient reports she is feeling better today. Is no specific complaints. He is continued to have a poor appetite over a long period of time. - Objective Vital Signs & Weight: Vital Signs (12 hours) Temp Pulse Pulse Pulse Resp BP BP 10/01/19 17:06 98.4 F 63 18 109/76 10/01/19 14:41 98.5 F 76 18 113/70 10/01/19 14:24 98.4 F 75 20 103/62 10/01/19 12:09 98.2 F 62 18 107/71 10/01/19 09:46 98.2 F 70 16 98/65 96/61 10/01/19 07:43 98.2 F 68 16 10/01/19 07:37 BP Pulse Ox 10/01/19 17:06 97 10/01/19 14:41 98 10/01/19 14:24 98 10/01/19 12:09 99 10/01/19 09:46 98 10/01/19 07:43 102/61 98 10/01/19 07:37 98 Weight Admit Weight 137 lb 6 oz Weight 141 lb 11.2 oz I&O: 09/30/19 10/01/19 10/02/19 06:59 06:59 06:59 Intake Total 850 960 700 Output Total 700 500 Balance 150 460 700 Result Diagrams: 10/01/19 04:17 10/01/19 04:17 Hospitalist ROS - Medication Medications: Active Medications Generic Name Dose Route Start Last Admin Trade Name Freq PRN Reason Stop Dose Admin Acetaminophen 650 mg 09/30/19 11:55 09/30/19 13:03 Tylenol PO 650 mg Q6H PRN Administration Fever>101/(Mi/Mod/Sev) Pain Lipase/Protease/Amylase 12 cap 09/30/19 08:00 10/01/19 16:[address] [place] [id number] PO 12 cap TID-WM DRE Administration Aspirin 325 mg 09/30/19 09:00 10/01/19 12:15 Ecotrin PO 325 mg DAILY DRE Administration Diphenhydramine HCl 25 mg 10/01/19 13:30 10/01/19 14:36 Benadryl PO 10/02/19 07:31 25 mg Q6H DRE Administration Sodium Chloride 1,000 mls @ 75 mls/hr 09/30/19 00:15 10/01/19 16:58 1/2 Normal Saline IV 10/02/19 05:59 1,000 mls .[id number] DRE Administration Ondansetron HCl 4 mg 09/30/19 13:18 10/01/19 12:15 Zofran IVP 4 mg Q6H PRN Administration Nausea/Vomiting Pantoprazole Sodium 40 mg 09/30/19 09:00 10/01/19 12:15 Protonix PO 40 mg BID DRE Administration Prednisone 30 mg 10/01/19 13:30 10/01/19 14:36 Prednisone PO 10/02/19 07:31 30 mg Q6H DRE Administration Sodium Chloride 10 ml 09/29/19 21:00 10/01/19 12:15 Flush - Normal Saline IVF 10 ml Q12HR DRE Administration Tamsulosin HCl 0.4 mg 09/30/19 21:00 09/30/19 20:37 Flomax PO 0.4 mg HS DRE Administration Topiramate 25 mg 09/30/19 09:00 10/01/19 14:37 Topamax PO 25 mg TID DRE Administration - Exam General Appearance: NAD, awake alert General - other findings: His color is improved. Heart: RRR, no murmur, no gallops, no rubs, normal peripheral pulses Respiratory: CTAB, no wheezes, no rales, no ronchi, normal chest expansion, no tachypnea, normal percussion Gastrointestinal: soft, non-tender, non-distended, normal bowel sounds, no palpable masses, no hepatomegaly, no splenomegaly, no bruit Extremities: no cyanosis, no clubbing, no edema Skin: normal turgor Musculoskeletal: normal tone Psychiatric: normal affect Hosp A/P (1) NSTEMI (non-ST elevated myocardial infarction) Code(s): I21.4 - NON-ST ELEVATION (NSTEMI) MYOCARDIAL INFARCTION Status: Acute (2) Pancreatic cancer Status: Acute (3) Fever Code(s): R50.9 - FEVER, UNSPECIFIED Status: Acute (4) Cirrhosis of liver Code(s): K74.60 - UNSPECIFIED CIRRHOSIS OF LIVER Status: Acute (5) GI bleed Code(s): K92.2 - GASTROINTESTINAL HEMORRHAGE, UNSPECIFIED Status: Acute (6) Anorexia Code(s): R63.0 - ANOREXIA Status: Acute - Plan NSTEMI: Discussed the case with Dr. Olivares this morning. NSTEMI is likely due to severe anemia. Patient's echo was technically difficult but appears to show preserved ejection fraction. Initially plan was not to pursue cardiac cath. Discussed with Dr. Olivares today, however, and he is now anticipating heart cath tomorrow. He is going to attempt a radial artery approach in order to minimize bleeding. There is certainly some risk given his heme positive stools. However, after he discussed the case with the patient's oncologist and was told the patient had a prognosis that was fairly good for the next year or 2 he felt it was appropriate to pursue aggressive intervention. Pancytopenia with severe anemia: Secondary to chemotherapy., Hemoglobin is back down to 6.8 today. He had 1 unit transfused. Discussed with Dr. Olivares. Would like to have his hemoglobin above 8 therefore we will go ahead and get on the second unit today. This is anticipation of possible bleeding concerns related to the heart cath. Pancreatic cancer: Patient is receiving chemotherapy through [facility]. Dr. Olivares spoke with the patient's oncologist and it sounds like he has a reasonable prognosis for the next year or 2. Cirrhosis of the liver: This is based on imaging. He also has a biliary stent in place. Has some complex ascites. Fever: Patient had one episode of fever. He is not been neutropenic. He is not on antibiotics and there is no indication for such at this time. Anorexia: There is no good intervention at this point. Would not consider hormone therapy. He and his inquired about medical marijuana. Obviously that is not something we can do at this juncture. Encouraged him to follow-up with their PCP after discharge to discuss options. GI bleed: Patient has heme positive stools. It is unclear how much this is factoring into his overall anemia. It does not sound like he has reported a lot of blood loss. More likely the anemia is related to the chemotherapy. However this does present some risk for a heart cath. Dr. Olivares is aware.
[2019-10-01] MEDS: Montelukast Sodium 10 mg Tablet PO SCH (20:22)
[2019-10-01] MEDS: Tamsulosin HCl 0.4 MG CAP PO SCH (20:22)
[2019-10-02] MEDS: diphenhydrAMINE 25 MG CAP PO SCH ×2 (01:02→06:36)
[2019-10-02] MEDS: predniSONE 20 MG TAB PO SCH ×2 (01:02→06:36)
[2019-10-02] MEDS: Sodium Chloride 0.45% 1,000 ML IV SCH (04:51)
[2019-10-02] MEDS: Sodium Chloride 0.9% 1,000 ML IV SCH ×3 (05:05→23:25)
[2019-10-02 06:09] LABS: Hemoglobin 11.2 g/dL (14.0-18.0); Platelet Count 103 thou/uL (130-400)
[2019-10-02] MEDS: Ondansetron PF 4 MG/2 ML Vial IVP PRN (09:59)
[2019-10-02] MEDS: Aspirin 325 mg Enteric Coated Tablet PO SCH (09:59)
[2019-10-02] MEDS: Topiramate 25 MG TAB PO SCH ×3 (10:00→20:14)
[2019-10-02] MEDS: Pancrelipase DR 12000 1 CAP PO SCH ×3 (10:01→18:02)
--- NOTE | 2019-10-02 15:37 | PDOC.HOSPP ---
- Subjective Encounter Date: 10/02/19 Subjective: Feels pretty well today. Tolerated the heart cath well. Still had some bright red blood per rectum. - Objective Vital Signs & Weight: Vital Signs (12 hours) Temp Pulse Resp BP BP Pulse Ox 10/02/19 12:29 98.0 F 65 18 110/64 99 10/02/19 08:05 98.2 F 66 16 112/69 100 10/02/19 03:55 97.5 F L 59 L 20 110/71 99 Weight Admit Weight 137 lb 6 oz Weight 142 lb 1.6 oz I&O: 10/01/19 10/02/19 10/03/19 06:59 06:59 06:59 Intake Total 960 1990 Output Total 500 600 Balance 460 1390 Result Diagrams: 10/02/19 06:01 10/01/19 04:17 Hospitalist ROS - Medication Medications: Active Medications Generic Name Dose Route Start Last Admin Trade Name Freq PRN Reason Stop Dose Admin Acetaminophen 650 mg 09/30/19 11:55 09/30/19 13:03 Tylenol PO 650 mg Q6H PRN Administration Fever>101/(Mi/Mod/Sev) Pain Lipase/Protease/Amylase 12 cap 09/30/19 08:00 10/02/19 12:[address] [id number] PO 12 cap TID-WM DRE Administration Aspirin 325 mg 09/30/19 09:00 10/02/19 09:59 Ecotrin PO 325 mg DAILY DRE Administration Sodium Chloride 1,000 mls @ 100 mls/hr 10/02/19 06:00 10/02/19 05:05 Normal Saline 0.9% IV 1,000 mls .Q10H DRE Administration Montelukast Sodium 10 mg 10/01/19 21:00 10/01/19 20:22 Singulair PO Not Given QPM DRE Ondansetron HCl 4 mg 09/30/19 13:18 10/02/19 09:59 Zofran IVP 4 mg Q6H PRN Administration Nausea/Vomiting Pantoprazole Sodium 40 mg 09/30/19 09:00 10/02/19 09:59 Protonix PO 40 mg BID DRE Administration Sodium Chloride 10 ml 09/29/19 21:00 10/02/19 10:00 Flush - Normal Saline IVF 10 ml Q12HR DRE Administration Tamsulosin HCl 0.4 mg 09/30/19 21:00 10/01/19 20:22 Flomax PO 0.4 mg HS DRE Administration Topiramate 25 mg 09/30/19 09:00 10/02/19 10:00 Topamax PO 25 mg TID DRE Administration - Exam General Appearance: NAD, awake alert Heart: RRR, no murmur, no gallops, no rubs, normal peripheral pulses Respiratory: CTAB, no wheezes, no rales, no ronchi, normal chest expansion, no tachypnea, normal percussion Gastrointestinal: soft, non-tender, non-distended, normal bowel sounds, no palpable masses, no hepatomegaly, no splenomegaly, no bruit Extremities: no cyanosis, no clubbing, no edema Hosp A/P (1) NSTEMI (non-ST elevated myocardial infarction) Code(s): I21.4 - NON-ST ELEVATION (NSTEMI) MYOCARDIAL INFARCTION Status: Acute (2) Pancreatic cancer Status: Acute (3) Fever Code(s): R50.9 - FEVER, UNSPECIFIED Status: Acute (4) Cirrhosis of liver Code(s): K74.60 - UNSPECIFIED CIRRHOSIS OF LIVER Status: Acute (5) GI bleed Code(s): K92.2 - GASTROINTESTINAL HEMORRHAGE, UNSPECIFIED Status: Acute (6) Anorexia Code(s): R63.0 - ANOREXIA Status: Acute - Plan NSTEMI: Had a heart cath this morning. Minimal disease. Most likely related to severe anemia. Pancytopenia with severe anemia: Secondary to chemotherapy. Hemoglobin is over 11 today with transfusion of 2 units yesterday. Pancreatic cancer: Patient is receiving chemotherapy through [facility]. Dr. Olivares spoke with the patient's oncologist and it sounds like he has a reasonable prognosis for the next year or 2. Cirrhosis of the liver: This is based on imaging. He also has a biliary stent in place. Has some complex ascites. Fever: Patient had one episode of fever. He is not been neutropenic. He is not on antibiotics and there is no indication for such at this time. Anorexia: There is no good intervention at this point. Would not consider hormone therapy. He and his inquired about medical marijuana. Obviously that is not something we can do at this juncture. Encouraged him to follow-up with their PCP after discharge to discuss options. GI bleed: Patient has heme positive stools. It is unclear how much this is factoring into his overall anemia. It does not sound like he has reported a lot of blood loss. More likely the anemia is related to the chemotherapy. GI has been consulted. Discussed with GI. Expect that this is likely stable and can be watched over time rather than warranting endoscopy. Disposition: Patient can likely discharge if cleared by GI.
[2019-10-02] MEDS: Tamsulosin HCl 0.4 MG CAP PO SCH (20:14)
[2019-10-02] MEDS: Montelukast Sodium 10 mg Tablet PO SCH (20:15)
[2019-10-03 04:48] LABS: Hemoglobin 9.4 g/dL (14.0-18.0)
[2019-10-03] MEDS: Pancrelipase DR 12000 1 CAP PO SCH ×2 (08:26→12:30)
[2019-10-03] MEDS: Topiramate 25 MG TAB PO SCH (08:27)
--- NOTE | 2019-10-03 08:57 | PRG ---
DATE OF SERVICE: 10/03/2019 SUBJECTIVE: Mr. Brandon is doing well. He states he has good appetite. No current complaints. OBJECTIVE: GENERAL: Patient is a pleasant male, who is in no acute distress. The patient appears their stated age. VITAL SIGNS: Pulse 56, blood pressure 97/63, respirations 20. NEUROLOGIC: The patient is alert and oriented x3 with no focal neurologic deficits. HEENT: Sclerae without icterus. Mouth has moist mucous membranes with normal pallor. NECK: No JVD. Carotid upstroke brisk. No bruits bilaterally. LUNGS: Clear to auscultation with unlabored respirations. BACK: No scoliosis or kyphosis. CARDIAC: Regular rate and rhythm with normal S1 and S2. No S3 or S4 noted. No significant rubs, murmurs, thrills, or gallops noted throughout the precordium. PMI is not displaced. There is no parasternal heave. ABDOMEN: Soft, nontender, nondistended. No peritoneal signs present. No hepatosplenomegaly. No abnormal striae. EXTREMITIES: 2+ femoral and 2+ dorsalis pedis pulses. No cyanosis, clubbing, or edema. SKIN: No gross abnormalities. PERTINENT LABORATORY DATA: Hemoglobin 9.4, hemoglobin 28.6. 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 He also had 65% stenosis in the mid LAD. IMPRESSION: 1. Type 2 myocardial infarction. 2. Gastrointestinal bleed, likely from hemorrhoids. 3. Anemia from chemo. 4. Pancreatic cancer. 5. Cirrhosis. RECOMMENDATIONS: At this point, we would recommend secondary risk factor modification. The patient does have a completely occluded distal LAD. The vessel is very very small. We will continue with medical therapy. Decrease aspirin to 81 mg one p.o. q.a.m. from 325 q.a.m. We will also add low-dose atorvastatin 20 mg p.o. at bedtime. Overall, LVEF does appear normal and may benefit from additional fluids. There are no further medications that would cause hypotension. We will follow peripherally. Job ID: [id number]
[2019-10-03] MEDS ORDERED: Docusate 100 MG CAP PO SCH (09:00)
[2019-10-03] MEDS ORDERED: Aspirin 81 mg Enteric Coated Tablet PO SCH (09:00)
[2019-10-03] MEDS ORDERED: Hydrocortisone Acetate 25 MG Suppository PR SCH (09:00)
--- NOTE | 2019-10-03 10:43 | CON ---
DATE OF CONSULTATION: 10/02/2019 REASON FOR CONSULTATION: Rectal bleeding. REQUESTING PHYSICIAN: Dr. Karl Wells. HISTORY OF PRESENT ILLNESS: Mr. Brandon is a 74-year-old gentleman, who was diagnosed with pancreatic cancer early last year. Apparently, he had seen Dr. Chávez for some vague abdominal symptoms. The patient is not really clear at this time and I have not been able to look at the chart recently, but he was due for colonoscopy and had 10 small benign adenomas removed in 07/2017. He had a previous EGD in 2014. A CAT scan was ordered by Dr. 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 He was ultimately sent to [place] where an endoscopic ultrasound and biopsy confirmed the diagnosis of adenocarcinoma. He was seen for possible resection, but at the time of surgery for a Whipple laparoscopy, he was found to have cirrhosis and portal hypertension and the surgery was aborted. Now, he is receiving chemotherapy and seemingly radiation as well with [facility] at the [facility]. He reports he has had several transfusions there recently, which have been attributed to it seems as his chemotherapy medicines, although he has had some rectal bleeding at times, it has been painless typically with outlet, occasionally have sharp pain with a hard stool, but he keeps his stools soft with MiraLAX because he gets constipated if he does not. The patient came to the hospital on 09/28 for a chest pain down his arms and was evaluated for possible TN and had a mildly elevated troponin. He also was found to be anemic. The patient denies having melena, nausea, vomiting, or hematemesis. He states he was told there was a little bit of fluid in his abdomen by his oncologist to get out. He was also told he had cirrhosis, but the etiology was not known either. Denies prior history of hepatitis C or iron overload or alcohol use. Ultimately, he was also found to have a thoracic ascending aortic aneurysm. His imaging also shows a stent in the common bile duct per the radiologist and pneumobilia, ascites probably around the liver and upper abdomen. Today, the patient went to the analytical lab technician and had a cath with no overt obstruction and that had apparently went fine with no overt obstructions noted. Cardiology attributed his TN to his demand ischemia. Echocardiogram showed EF of , but it was a technically difficult study. On talking with the patient, his bleeding has been bright red and the nurses note there was formed brown stool with it as well. The patient denies any history of varices. He states he has had hemorrhoids in the past. His previous endoscopies have not shown varices; however, the EUS report does not mention I reviewed in our chart from [place] nor does the EGD from 2014. PAST MEDICAL HISTORY: 1. Pancreatic malignancy, nonoperable on palliative chemotherapy and has seemingly radiation as well. 2. History of thoracic ascending aortic aneurysm. 3. History of multiple colon polyps in the past. 4. Cirrhosis of unclear etiology. 5. Migraine headaches. 6. Insomnia. 7. Melanoma. PAST SURGICAL HISTORY: Back surgery, MediPort placement, arm surgery. REVIEW OF SYSTEMS: Reviewed in the chart. The sales lead generator did talk with the patient's oncologist and confirmed that he is nonoperable and that he has had profound anemia with need for transfusion. MEDICATIONS: Home medications; 1. Zofran. 2. Stool softener. 3. Simethicone. 4. MiraLAX. 5. . 6. Hyoscyamine. 7. Vitamin E. 8. Selenium. 9. Protonix. 10. Topamax. 11. Xanax. 12. Flonase. 13. Bisacodyl. 14. Fluoxetine. 15. Gabapentin. Medications here: 1. Tylenol. 2. Xanax. 3. Ecotrin. 4. Lomotil. 5. Lipase. 6. Pancreatic enzymes. 7. Creon 1200 six caps p.r.n. with meals. 8. P.r.n. Imodium. 9. Zofran. 10. Protonix. 11. Imitrex. 12. Flomax. 13. Ambien. PHYSICAL EXAMINATION: VITAL SIGNS: Temperature 98, pulse 64, blood pressure 99/63 to 110/64. GENERAL: He is resting comfortably in bed. HEENT: He is a bit hard of hearing. Eyes; conjunctivae and sclerae clear, nonicteric. He is mildly pale. LUNGS: Clear. HEART: Regular rate and rhythm without clicks or murmurs. ABDOMEN: Protuberant with some fluid wave, but no overt shifting dullness. There is no palpable hepatomegaly. EXTREMITIES: No edema. RECTAL: Reveals some scant bright red blood but for a large amount of soft brown stool in the rectal vault. LABORATORY DATA: Last hemoglobin here was 15 in 2018, on admission his hemoglobin was 8, today it is 11.2 after transfusion of 3 units of blood, one on the and two yesterday, platelet count is low at anywhere from 94 to 103. White counts are low at 1.7 to 2.2, MCV is 91. Sodium 137, potassium 3.6, BUN and creatinine are 16 and 0.8, calcium 7.7. Iron was 23, TIBC was 280, ferritin was 106, B12 , protein 5.2, albumin 2.9, AST 113, ALT 74, alkaline phosphatase 554 on admission, [address] scan images reviewed. There are some metallic Wallstents in the bile duct. ASSESSMENT: 1. Anemia with pancytopenia. This could be related to his cirrhosis. This could be related to chemotherapy. The patient has really does not have a good grasp on his disease progress. There is no overt evidence of bony metastatic lesions or hemolysis. 2. Pancreatic cancer, nonoperable, seemingly related to the finding of cirrhosis at the time of his laparoscopy for [facility] at [facility], at which time, the surgery was aborted. He is now on palliative chemotherapy and radiation, has had a palliative biliary stent placed. 3. Rectal bleeding. This seems to be rectal outlet and hemorrhoidal. It may be related to large stool and stercoral ulceration, his low platelet count or internal hemorrhoids, rectal varices are possible, but there has been no passage of clots severe hemorrhage. The nurse notes a fair amount of red blood in the bowl when he had his most recent bowel movement, but there is also brown stool with it. On my examination, there is no clot in the vault, just brown stool. RECOMMENDATIONS: 1. We will try to touch base with his oncologist tomorrow to see what other factors may be missing here or re-review his EUS and see if varices were noted at that study. 2. We will start him on rectal suppositories, with his hemoglobin remained stable, I think he can follow up his oncologist in the outpatient setting. Job ID: [id number]
[2019-10-03 12:13] VITALS: BP 98/64
[2019-10-03] MEDS: Sodium Chloride 0.9% 1,000 ML IV SCH (12:30)
[2019-10-03 15:29] VITALS: BMI 22.4
[2019-10-03 17:05] VITALS: TEMP 98
--- NOTE | 2019-10-03 17:23 | PRG ---
DATE OF SERVICE: 10/03/2019 SUBJECTIVE: Mr. Brandon states he has really had not any bleeding since he started suppositories. There was a scant amount of bright red blood, but no pain. OBJECTIVE: VITAL SIGNS: Temperature 97, pulse 61, blood pressure 98/64 to 100/65. GENERAL: He is resting comfortably in bed. He is dressed. He is getting ready to go home. LABORATORY DATA: Hemoglobin is 9.4 after 3 units of blood from hemoglobin of 6.8. BUN and creatinine are 16 and 0.8. Electrolytes normal. Bilirubin 1.2, AST 60, ALT 55, and alkaline phosphatase 396. ASSESSMENT: 1. Pancreatic cancer, nonoperable. 2. Cirrhosis of unclear etiology. 3. Rectal bleeding with colonoscopy 1 year ago with some hemorrhoids, with some small polyps removed, but no overt other lesions. No history of varices noted on previous endoscopic ultrasound last year when his pancreatic cancer was diagnosed. 4. Suspect his rectal bleeding is hemorrhoidal. 5. Suspect his anemia is multifactorial related to his chemotherapy versus pancytopenia and probably there is a component of chronic disease and cirrhosis. RECOMMENDATIONS: The patient is being discharged home today. We would recommend to add Colace and hydrocortisone suppository 25 mg b.i.d. for 10 days to his regimen of discharge medications. I have talked to the Hospitalist about this. If he were further bleeding, he may need a repeat endoscopy as he does not want to see his previous overhead worker, Dr. Chávez. He may want to follow up with recommendations from his oncologist in the [place]. We will sign off. Job ID: [id number]
--- NOTE | 2019-10-03 20:05 | DIS ---
DATE OF ADMISSION: 09/30/2019 DATE OF DISCHARGE: 10/03/2019 DISCHARGE DIAGNOSES: 1. Ydl-SI-ucdnjaq elevation myocardial infarction. 2. Pancreatic cancer. 3. Pancytopenia with severe anemia. 4. Cirrhosis of the liver. 5. Single episode of fever. 6. Gastrointestinal bleed. 7. Anorexia. 8. Coronary artery disease. HISTORY OF PRESENT ILLNESS: This patient is a 74-year-old male with a history of significant pancreatic cancer, being followed at [facility] and receiving chemotherapy. The patient presented to the hospital reporting chest pain and radiation down to the left arm. He appeared to have acute coronary syndrome with an indeterminate troponin at 0.368. He was also found to have profound anemia, felt to primarily be related to chemotherapy. His hemoglobin was initially 8, concerning for the possibility of demand ischemia related to the anemia. 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 The patient did report some modest amounts of bright red blood per rectum. He also was seen in consultation by Cardiology. His echocardiogram revealed a technically difficult study with poor definition, but appeared to have a normal EF. His hemoglobin continued to trend down until it reached 6.8, at which time, he required transfusion. The patient did undergo a heart catheterization at that time, which revealed an occlusion of the distal LAD, but did not require any intervention. Subsequently, the patient was seen by GI, who did not feel any endoscopic intervention was indicated and recommended treatment for hemorrhoids. The patient's vital signs remained stable, although his blood pressure remained on the lower side. He felt significantly better and his symptoms had fully resolved. There had been communication between Dr. Olivares and his oncologist as well. PHYSICAL EXAMINATION: VITAL SIGNS: On the day of discharge, temperature is 97.1, pulse 61, respirations 14, O2 saturation 99% on room air, and BP 98/64. GENERAL: He was awake and alert. He had good color. HEART: Regular. LUNGS: Clear. ABDOMEN: Benign. EXTREMITIES: No edema. DISPOSITION: The patient will be discharged to home on a heart healthy diet. ACTIVITY: As tolerated. HOME MEDICATIONS: Include; 1. Diphenoxylate/atropine one q.6 hours p.r.n. 2. Oxycodone 5 mg q.6 hours p.r.n. 3. Prochlorperazine 10 mg q.6 hours p.r.n. 4. Ondansetron 8 mg p.r.n. 5. Alprazolam 0.25 p.o. t.i.d. p.r.n. 6. Esomeprazole 40 mg b.i.d. 7. Eszopiclone 1.5 mg at bedtime p.r.n. 8. Creon 36,000 units two capsules with meals. 9. Loperamide 2 mg p.r.n. 10. Selenium 200 mg daily. 11. Simethicone p.r.n. 12. Tamsulosin 0.4 mg at bedtime. 13. Topiramate 25 mg t.i.d. 14. Vitamin E 400 units b.i.d. 15. Zinc 50 mg daily. 16. Zolpidem 5 mg at bedtime p.r.n. 17. Aspirin 81 mg daily. 18. Atorvastatin 20 mg p.o. at bedtime. The patient is to follow up with his primary care provider, Dr. Hansel Messer, and he is to follow up with his team at [facility]. The patient is advised to get repeat labs done in no later than Sunday or Sunday in order to ensure that his hemoglobin does not fall to severe levels again and risk further cardiac ischemia. The patient expressed understanding of this. He is also encouraged to treat hemorrhoids with [id number] preparations as well. The patient may return to the hospital at anytime he feels the need to do so. Total time in discharge activities is greater than 35 minutes. Job ID: [id number]
[2019-10-03] MEDS ORDERED: Atorvastatin Calcium 20 MG TAB PO SCH (21:00)
--- NOTE | 2019-10-04 05:40 | PQF ---
ELISA BOURNE DAVID R MD [id number] [facility]-263 [id number] CLINICAL DOCUMENTATION CLARIFICATION FORM: POST DISCHARGE Addendum to original discharge summary date: ____ Late entry note date: __ DATE: 10/04/2019 ATTN: Karl Montes Please exercise your independent, professional judgment in responding to the clarification form. Clinical indicators are provided on the bottom of this form for your review Please check appropriate box(s): [ x ] Anemia is due to chemotherapy [ ] Anemia is due to pancytopenia [ ] Anemia is due to chronic disease (cirrhosis) [ ] Other diagnosis [ ] Unable to determine In addition, please specify: Present on Admission (POA): [ x ] Yes [ ] No [ ] Unable to determine For continuity of documentation, please document condition throughout progress notes and discharge summary. Thank You. CLINICAL INDICATORS - SIGNS / SYMPTOMS / LABS Suspect his anemia is multifactorial related to his chemotherapy versus pancytopenia and probably there is a component of chronic disease and cirrhosis - Progress note 10/02 by Fernandez Phoenix MD Pancytopenia with severe anemia secondary to chemotherapy. Hemoglobin is over 11 today with transfusion of 2 units yesterday - Progress note 10/01 by Karl Wells MD Cirrhosis of the liver, this is based on imaging. Has some complex ascites- Progress note 09/30 by Karl Wells MD GI bleeding. Patient has heme positive stools. It is unclear how much this factoring into his overall anemia. It does not sound like he has reported a lot fo blood loss, More likely the anemia is related to the chemotherapy - Progress note 09/30 by Karl Wells MD Hemoglobin/hematocrit is 7.8/24.1 on 09/29 and 6.8/21.0 on 09/30 - Laboratory RISK FACTORS Pancreatic cancer, gastrointestinal bleed, anorexia, cirrhosis of the liver, hemorrhoids and chemotherapy - Discharge summary TREATMENTS: Transfusion of red blood cells on 09/29 and 09/30 - Blood bank (This form is maintained as a part of the permanent medical record) 2014 [employer]. All Rights Reserved [email or web address]
== END 2019-10-03 17:23 | disposition home or self-care (01) | DRG 811 ==
LOC: ERS 15:38 → 2NO 19:58 → OBSVTOIN 09-30 15:42
PROVIDERS: ADMIT Internal Medicine; ATTEND Internal Medicine
PROC: 30233N1 Transfusion of Nonautologous Red Blood Cells into Peripheral Vein, Percutaneous Approach (ICD-10-PCS; 2019-09-30)
PROC: 4A023N7 Measurement of Cardiac Sampling and Pressure, Left Heart, Percutaneous Approach (ICD-10-PCS; principal; 2019-10-02)
PROC: B2111ZZ Fluoroscopy of Multiple Coronary Arteries using Low Osmolar Contrast (ICD-10-PCS; 2019-10-02)
PROC: B3101ZZ Fluoroscopy of Thoracic Aorta using Low Osmolar Contrast (ICD-10-PCS; 2019-10-02)
DX: D64.81 Anemia due to antineoplastic chemotherapy (principal); I21.A1 Myocardial infarction type 2; C25.9 Malignant neoplasm of pancreas, unspecified; K92.2 Gastrointestinal hemorrhage, unspecified; R18.8 Other ascites; D61.810 Antineoplastic chemotherapy induced pancytopenia; K74.60 Unspecified cirrhosis of liver; R50.9 Fever, unspecified; I25.10 Atherosclerotic heart disease of native coronary artery without angina pectoris; R63.0 Anorexia; I71.2 Thoracic aortic aneurysm, without rupture; I10 Essential (primary) hypertension; F41.9 Anxiety disorder, unspecified; K64.9 Unspecified hemorrhoids; T45.1X5A Adverse effect of antineoplastic and immunosuppressive drugs, initial encounter; Z92.21 Personal history of antineoplastic chemotherapy; Z68.22 Body mass index [BMI] 22.0-22.9, adult
CPT/HCPCS: 36415; 36416; 36430; 71045; 71275; 76942; 80053; 80061; 81003; 81015; 82274; 82553; 82607; 82728; 82746; 83540; 83550; 83690; 84443; 84484; 85014; 85018; 85025; 85049; 85060; 86850; 86900; 86901; 87040; 93005; 93010; 93306; 93454; 93567; 94760; 96374; C1760; G0378; J1644; J2405; J7512; P9016; Q0163; Q9967